=== PATIENT | female | born 2005 | race Caucasian/White ===

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

== ENCOUNTER 2023-03-24 13:59 | Emergency (ER) | payer MEDICAID ==
[2023-03-24] MEDS ORDERED: Ondansetron 4 MG Tab.DIS PO ONE ×2 (14:20→15:00)
[2023-03-24] MEDS ORDERED: Ibuprofen 800 MG Tab PO ONE (15:00)
[2023-03-24] MEDS ORDERED: Cyclobenzaprine 10 MG Tab PO ONE (15:00)
[2023-03-24] MEDS ORDERED: Acetaminophen 500 MG Tab PO ONE (15:00)
== END 2023-03-24 15:46 | disposition home or self-care (01) ==
LOC: FB.ED 13:59
DX: R07.9 Chest pain, unspecified (principal); M79.18 Myalgia, other site; Z86.16 Personal history of COVID-19; Z88.8 Allergy status to other drugs, medicaments and biological substances; Z79.899 Other long term (current) drug therapy
CPT/HCPCS: 93005; 99284; A9270-GY; Q0162